=== PATIENT | female | born 1945 | race Caucasian/White ===

== ENCOUNTER → 2017-01-06 | Outpatient (CLI) | payer OTHER, MEDICARE ==
[~2017-01-06] MED LIST: EQL CALCIUM
== END ==
LOC: RAD 01:55
DX: Z12.31 Encounter for screening mammogram for malignant neoplasm of breast (principal)

== ENCOUNTER → 2018-01-12 | Outpatient (CLI) | payer OTHER, MEDICARE | LOC: RAD 01:54 | DX: Z12.31 Encounter for screening mammogram for malignant neoplasm of breast (principal); I10 Essential (primary) hypertension ==